=== PATIENT | male | born 1975 | race Caucasian/White ===

== ENCOUNTER 2019-06-22 09:16 | Emergency (ER) | payer SELFPAY ==
[~2019-06-22] VITALS: Ht 167.6 cm; Wt 79.8 kg
[2019-06-22 09:27] VITALS: Ht 167.6 cm; Wt 79.8 kg
[2019-06-22 12:12] VITALS: BP 149/91
== END 2019-06-22 12:12 | disposition home or self-care (01) ==
LOC: ED 09:16
DX: S52.202A Unspecified fracture of shaft of left ulna, initial encounter for closed fracture (principal); W01.0XXA Fall on same level from slipping, tripping and stumbling without subsequent striking against object, initial encounter; Y93.89 Activity, other specified; Y92.89 Other specified places as the place of occurrence of the external cause; Y99.8 Other external cause status

== ENCOUNTER 2020-06-17 09:12 | Emergency (ER) | payer SELFPAY ==
[~2020-06-17] VITALS: Ht 167.6 cm; Wt 84.4 kg
[2020-06-17 11:23] LABS: BASOPHIL % 0.6 % (0-2); PLATELET COUNT 248 x10^3mcL (130-400); RED CELL DISTRIBUTION WIDTH 13.7 % (11.5-14.5)
[2020-06-17 11:43] LABS: CALCIUM 8.8 mg/dL (8.5-10.1); CARBON DIOXIDE 28.1 mmol/L (21-32); CHLORIDE SERUM 99 mmol/L (98-107); CREATININE SERUM 0.9 mg/dL (0.7-1.3); GFR1 > 60 mL/min; GLUCOSE SERUM 104 mg/dL (74-106); POTASSIUM SERUM 3.7 mmol/L (3.5-5.1); SODIUM SERUM 136 mmol/L (136-145)
[2020-06-17 11:47] LABS: ALBUMIN 3.6 g/dL (3.4-5.0); ALKALINE PHOSPHATASE 77 U/L (46-116); ALT/SGPT 57 U/L (16-63); AST/SGOT 28 U/L (15-37); BILIRUBIN TOTAL 0.27 mg/dL (0.20-1.00); LIPASE 155 IU/L (73-393)
[2020-06-17 11:49] LABS: TOTAL PROTEIN, SERUM 9.1 g/dL (6.4-8.2)
[2020-06-17 12:07] LABS: microscopic required? NO
[2020-06-17 14:29] LABS: UA SPECIFIC GRAVITY <=1.005 (1.005-1.035); urine erythrocyte NEGATIVE (NEGATIVE)
[2020-06-17 14:43] VITALS: BP 118/79
== END 2020-06-17 14:43 | disposition home or self-care (01) ==
LOC: ED 09:12
PROVIDERS: Emergency Medicine
DX: K52.9 Noninfective gastroenteritis and colitis, unspecified (principal)
CPT/HCPCS: Q0092; Q9967

== ENCOUNTER 2020-07-04 13:54 | Emergency (ER) | payer SELFPAY ==
[~2020-07-04] VITALS: Ht 167.6 cm; Wt 83.5 kg
[2020-07-04 14:00] VITALS: Ht 167.6 cm; Wt 83.5 kg
[2020-07-04 14:46] LABS: CALCIUM 8.6 mg/dL (8.5-10.1); CARBON DIOXIDE 28.7 mmol/L (21-32); CHLORIDE SERUM 103 mmol/L (98-107); GFR1 > 60 mL/min; GLUCOSE SERUM 106 mg/dL (74-106); POTASSIUM SERUM 3.4 mmol/L (3.5-5.1); SODIUM SERUM 140 mmol/L (136-145)
[2020-07-04 14:47] LABS: BASOPHIL % 0.4 % (0-2); PLATELET COUNT 218 x10^3mcL (130-400); RED CELL DISTRIBUTION WIDTH 13.6 % (11.5-14.5)
[2020-07-04 14:51] LABS: ALBUMIN 3.5 g/dL (3.4-5.0); ALKALINE PHOSPHATASE 73 U/L (46-116); ALT/SGPT 62 U/L (16-63); AST/SGOT 26 U/L (15-37); BILIRUBIN TOTAL 0.3 mg/dL (0.20-1.00); TOTAL PROTEIN, SERUM 8.1 g/dL (6.4-8.2)
[2020-07-04 16:19] VITALS: BP 121/65
== END 2020-07-04 16:19 | disposition home or self-care (01) ==
LOC: ED 13:54
PROVIDERS: Student in an Organized Health Care Education/Training Program
DX: K52.9 Noninfective gastroenteritis and colitis, unspecified (principal); F17.210 Nicotine dependence, cigarettes, uncomplicated

== ENCOUNTER 2020-08-04 21:06 | Emergency (ER) | payer MEDICAID ==
[~2020-08-04] VITALS: Ht 170.2 cm; Wt 90.7 kg
[2020-08-04 21:12] VITALS: Ht 170.2 cm; Wt 90.7 kg
[2020-08-04 22:32] LABS: BASOPHIL % 0.4 % (0-2); PLATELET COUNT 181 x10^3mcL (130-400); RED CELL DISTRIBUTION WIDTH 13.6 % (11.5-14.5)
[2020-08-04 22:48] LABS: CALCIUM 8.6 mg/dL (8.5-10.1); CARBON DIOXIDE 28.9 mmol/L (21-32); CHLORIDE SERUM 101 mmol/L (98-107); CREATININE SERUM 0.9 mg/dL (0.7-1.3); GFR1 > 60 mL/min; GLUCOSE SERUM 82 mg/dL (74-106); POTASSIUM SERUM 3.9 mmol/L (3.5-5.1); SODIUM SERUM 136 mmol/L (136-145)
[2020-08-04 22:53] LABS: ALBUMIN 3.5 g/dL (3.4-5.0); ALKALINE PHOSPHATASE 66 U/L (46-116); ALT/SGPT 75 U/L (16-63); AST/SGOT 34 U/L (15-37); BILIRUBIN TOTAL 0.2 mg/dL (0.20-1.00); LIPASE 151 IU/L (73-393); TOTAL PROTEIN, SERUM 8.1 g/dL (6.4-8.2)
[2020-08-04 23:48] VITALS: BP 112/50
[2020-08-04 23:58] LABS: microscopic required? NO
[2020-08-05 00:11] LABS: UA SPECIFIC GRAVITY 1.025 (1.005-1.035); urine erythrocyte NEGATIVE (NEGATIVE)
== END 2020-08-04 23:48 | disposition home or self-care (01) ==
LOC: ED 21:06
PROVIDERS: Emergency Medicine
DX: R10.30 Lower abdominal pain, unspecified (principal); K52.9 Noninfective gastroenteritis and colitis, unspecified; J45.909 Unspecified asthma, uncomplicated

== ENCOUNTER 2020-11-28 02:04 | Emergency (ER) | payer SELFPAY ==
[~2020-11-28] VITALS: Ht 165.1 cm; Wt 83.0 kg
[2020-11-28] MEDS ORDERED: BACTRIM DS1 TAB PO (02:45)
[2020-11-28 02:57] VITALS: BP 131/71
== END 2020-11-28 02:57 | disposition home or self-care (01) ==
LOC: ED 02:04
DX: L03.113 Cellulitis of right upper limb (principal); L03.116 Cellulitis of left lower limb; J45.909 Unspecified asthma, uncomplicated

== ENCOUNTER 2020-12-01 06:49 | Inpatient (IN) | payer MEDICAID ==
[~2020-12-01] VITALS: Ht 165.1 cm; Wt 84.1 kg
[~2020-12-01 06:49] MED LIST: BACTRIM DS1 TAB PO
[2020-12-01 07:01] VITALS: Ht 165.1 cm; Wt 84.1 kg
[2020-12-01 07:49] LABS: BASOPHIL % 0.6 % (0.2-1.5); PLATELET COUNT 298 x10^3mcL (152-348); RED CELL DISTRIBUTION WIDTH 13.5 % (12.1-16.2)
[2020-12-01 08:09] LABS: ALKALINE PHOSPHATASE 65 U/L (46-116); ALT/SGPT 25 U/L (16-63); AST/SGOT 15 U/L (15-37); BILIRUBIN TOTAL 0.3 mg/dL (0.20-1.00); CALCIUM 8.7 mg/dL (8.5-10.1); CARBON DIOXIDE 30.5 mmol/L (21-32); CHLORIDE SERUM 97 mmol/L (98-107); CREATININE SERUM 0.9 mg/dL (0.7-1.3); GFR1 > 60 mL/min; GLUCOSE SERUM 108 mg/dL (74-106); POTASSIUM SERUM 4.1 mmol/L (3.5-5.1); SODIUM SERUM 133 mmol/L (136-145)
[2020-12-01 08:18] LABS: ALBUMIN 2.4 g/dL (3.4-5.0); TOTAL PROTEIN, SERUM 8.3 g/dL (6.4-8.2)
[2020-12-01 15:14] VITALS: BP 98/58
[2020-12-01 16:29] VITALS: BP 115/69
[2020-12-01 20:23] VITALS: BP 113/61
[2020-12-02 03:10] VITALS: BP 101/57
[2020-12-02 07:12] LABS: CALCIUM 8.5 mg/dL (8.5-10.1); CARBON DIOXIDE 28.3 mmol/L (21-32); CHLORIDE SERUM 101 mmol/L (98-107); GFR1 > 60 mL/min; GLUCOSE SERUM 135 mg/dL (74-106); POTASSIUM SERUM 4.2 mmol/L (3.5-5.1); SODIUM SERUM 137 mmol/L (136-145)
[2020-12-02 07:18] LABS: BASOPHIL % 0.4 % (0.2-1.5); PLATELET COUNT 309 x10^3mcL (152-348); RED CELL DISTRIBUTION WIDTH 13.8 % (12.1-16.2)
[2020-12-02 08:52] VITALS: BP 113/66
[2020-12-02 13:04] VITALS: BP 111/71
[2020-12-02 16:46] VITALS: BP 104/62
[2020-12-02 21:17] VITALS: BP 102/53
[2020-12-03 04:56] VITALS: BP 115/55
[2020-12-03 06:59] LABS: BASOPHIL % 0.6 % (0.2-1.5); PLATELET COUNT 379 x10^3mcL (152-348); RED CELL DISTRIBUTION WIDTH 13.7 % (12.1-16.2)
[2020-12-03 07:30] LABS: CALCIUM 8.4 mg/dL (8.5-10.1); CARBON DIOXIDE 28.3 mmol/L (21-32); CHLORIDE SERUM 103 mmol/L (98-107); CREATININE SERUM 0.9 mg/dL (0.7-1.3); GFR1 > 60 mL/min; GLUCOSE SERUM 96 mg/dL (74-106); POTASSIUM SERUM 4.6 mmol/L (3.5-5.1); SODIUM SERUM 138 mmol/L (136-145)
[2020-12-03 07:58] VITALS: BP 97/51
[2020-12-03 12:26] VITALS: BP 109/58
[2020-12-03 16:32] VITALS: BP 111/66
[2020-12-03 19:10] VITALS: BP 109/54
[2020-12-04 05:10] VITALS: BP 105/58
[2020-12-04 07:44] LABS: BASOPHIL % 0.8 % (0.2-1.5); RED CELL DISTRIBUTION WIDTH 13.4 % (12.1-16.2)
[2020-12-04 07:53] LABS: CALCIUM 8.5 mg/dL (8.5-10.1); CARBON DIOXIDE 29.3 mmol/L (21-32); CHLORIDE SERUM 103 mmol/L (98-107); GFR1 > 60 mL/min; GLUCOSE SERUM 92 mg/dL (74-106); POTASSIUM SERUM 4.3 mmol/L (3.5-5.1); SODIUM SERUM 139 mmol/L (136-145)
[2020-12-04 08:12] LABS: PLATELET COUNT 438 x10^3mcL (152-348)
[2020-12-04 08:50] VITALS: BP 109/60
[2020-12-04] MEDS ORDERED: CLEOCIN HCL300 MG PO (08:53)
[2020-12-04 10:17] VITALS: BP 109/60
== END 2020-12-04 10:43 | disposition home or self-care (01) | DRG 383 ==
LOC: ED 06:49 → MU 08:58
PROVIDERS: Emergency Medicine; Internal Medicine; ADMIT Family Medicine; ATTEND Family Medicine
DX: L03.115 Cellulitis of right lower limb (principal); E43 Unspecified severe protein-calorie malnutrition; R65.10 Systemic inflammatory response syndrome (SIRS) of non-infectious origin without acute organ dysfunction; Z20.822 Contact with and (suspected) exposure to COVID-19; B95.0 Streptococcus, group A, as the cause of diseases classified elsewhere; J45.909 Unspecified asthma, uncomplicated
CPT/HCPCS: G0378; J0696; J2543; J3370; J7030; J7050; J7060